=== PATIENT | male | born 1995 | race African-American/Black ===

== ENCOUNTER 2016-10-24 12:43 | Emergency (ER) | payer BC ==
[2016-10-24 13:09] VITALS: BP 125/74; PULSE 79; TEMP 98.3; BMI 24.9
--- NOTE | 2016-10-24 13:39 | PDOC ---
History of Present Illness - General Chief Complaint: Eye Problem Stated Complaint: PINK EYE/ RT EYE PAIN Time Seen by Provider: 10/24/16 13:18 History Source: Patient Exam Limitations: No Limitations - History of Present Illness Initial Comments: 10/24/16 13:34 CHIEF COMPLAINT: Pain, redness, drainage to right eye HISTORY OF PRESENT ILLNESS: Patient is a 21-year-old male, no significant medical history currently no medication presents with pruritus, pain and redness to right eye. Drainage this a.m. Denies any trauma. REVIEW OF SYSTEMS: GENERAL/CONSTITUTIONAL: No fever or chills. No weakness. No weight change. HEAD, EYES, EARS, NOSE AND THROAT: No change in vision. Drainage and pruritus to right eye. No ear pain or discharge. No sore throat. RESPIRATORY: No cough, wheezing, or hemoptysis. SKIN : No rash or easy bruising. NEUROLOGIC: No headache, vertigo, loss of consciousness, or loss of sensation. HEMATOLOGIC/LYMPHATIC: No lymphadenopathy ALLERGIC/IMMUNOLOGIC: No hives or skin allergy. No latex allergy. PHYSICAL EXAM: GENERAL: The patient is awake, alert, and fully oriented, in no acute distress. HEAD: Normal with no signs of trauma. EYES: Pupils equal, round and reactive to light, extraocular movements intact, sclera anicteric, conjunctiva injected, extending to limbus after fluorescein staining, no corneal abrasion noted. ENT: Ears normal, nares patent, oropharynx clear without exudates. Moist mucous membranes. NECK: Normal range of motion, supple without lymphadenopathy, JVD, or masses. LUNGS: Breath sounds equal, clear to auscultation bilaterally. No wheezes, and no crackles. NEUROLOGICAL: Cranial nerves II through XII grossly intact. Normal speech, normal gait. SKIN: No erythema no facial edema. Warm, Dry, normal turgor, no rashes or lesions noted. Past History - Past Medical History Allergies/Adverse Reactions: Allergies Allergy/AdvReac Type Severity Reaction Status Date / Time No Known Allergies Allergy Verified 10/24/16 13:05 Home Medications: Ambulatory Orders Aspirin [ASA -] 81 mg PO DAILY #30 tab 04/18/16 Polymyxin B Sulfate/Tmp [Polytrim Opthalmic Solution -] 2 drop OP Q4H #1 bottle 10/24/16 Other medical history: none - Immunization History Immunization Up to Date: Yes - Psycho/Social/Smoking Cessation Hx Anxiety: No Suicidal Ideation: No Smoking History: Never smoked Have you smoked in the past 12 months: No Number of Cigarettes Smoked Daily: 0 Cigars Per Day: 0 Information on smoking cessation initiated: No Hx Alcohol Use: No Drug/Substance Use Hx: No Substance Use Type: None Hx Substance Use Treatment: No *Physical Exam - Vital Signs Last Vital Signs Temp Pulse Resp BP Pulse Ox 98.3 F 79 18 125/74 100 10/24/16 13:06 10/24/16 13:06 10/24/16 13:06 10/24/16 13:06 10/24/16 13:06 Medical Decision Making - Medical Decision Making 10/24/16 13:37 A/P: Patient with conjunctivitis to right eye. We'll DC patient home on Polytrim , follow-up with ophthalmology as needed. Instructions for care given to patient. He verbalized understanding. *DC/Admit/Observation/Transfer Diagnosis at time of Disposition: Conjunctivitis Qualifiers: Conjunctivitis type: acute Acute conjunctivitis type: bacterial Laterality: right Qualified Code(s): H10.31 - Unspecified acute conjunctivitis, right eye - Discharge Dispostion Disposition: HOME Condition at time of disposition: Good Admit: No - Prescriptions Prescriptions: Polymyxin B Sulfate/Tmp [Polytrim Opthalmic Solution -] 2 drop OP Q4H #1 bottle - Patient Instructions Printed Discharge Instructions: Conjunctivitis Additional Instructions: * Refrain from touching or scratching eye * Please wash hands frequently * Please followup with his primary care doctor in 2 days if symptoms persist * Medication as prescribed * Warm compresses to eye * If increased redness, swelling, pain to the eye please follow up with primary care doctor immediately or return to emergency room - Post Discharge Activity Work/School Note: Back to Work
== END 2016-10-24 13:50 | disposition home or self-care (01) ==
LOC: JERFT 12:43
DX: H10.31 Unspecified acute conjunctivitis, right eye (principal)
CPT/HCPCS: 99281-25

== ENCOUNTER 2018-10-27 23:35 | Emergency (ER) | payer BC ==
[2018-10-27 23:43] VITALS: BP 146/92; PULSE 105; TEMP 99.2; BMI 34.4
[2018-10-28] MEDS ORDERED: IBUPROFEN 100 MG/5 ML UNIT DOSE CUPS PO ONE (00:30)
[2018-10-28] MEDS ORDERED: DEXAMETHASONE LIQUID 0.5 MG/5 ML 240 ML BULK BOTTLE PO ONE (00:30)
[2018-10-28] MEDS ORDERED: IBUPROFEN 600 MG TABLET (FP) PO ONE (00:37)
[2018-10-28] MEDS ORDERED: DEXAMETHASONE SOD PHOSPHATE 10 MG/1 ML VIAL ONE (00:37)
--- NOTE | 2018-10-28 00:53 | PDOC ---
History of Present Illness - General Chief Complaint: Sore Throat Stated Complaint: THROAT PAIN/FEVER Time Seen by Provider: 10/28/18 00:08 History Source: Patient Exam Limitations: No Limitations - History of Present Illness Initial Comments: 10/28/18 00:46 Patient is a 23 year old male with no pmhx c/o fever, sore thorat, cough and stuffy nose x 3 days. States the highest temp today was 100.2. Took [place] 6pm and benadryl at midday. States currently the sore throat is better pain is 8/10, worse with swallowing and coughing. H/o strep thorat in the past. States that last week had right periorbital pain, and popping in the right ear 2 days ago with difficulty hearing from the right ear. PMHX: seasonal allergies PSOCHX: occ etoh, neg cig, neg drugs ALL: NKDA GENERAL/CONSTITUTIONAL: No fever or chills. No weakness. No weight change. HEAD, EYES, EARS, NOSE AND THROAT: No change in vision. No ear pain or discharge. No sore throat. CARDIOVASCULAR: No chest pain or shortness of breath. RESPIRATORY: No cough, wheezing, or hemoptysis. GASTROINTESTINAL: No nausea, vomiting, diarrhea or constipation. No rectal bleeding. GENITOURINARY: No dysuria, frequency, or change in urination. MUSCULOSKELETAL: No joint or muscle swelling or pain. No neck or back pain. SKIN AND BREASTS: No rash or easy bruising. NEUROLOGIC: No headache, vertigo, loss of consciousness, or loss of sensation. PSYCHIATRIC: No depression or anxiety. ENDOCRINE: No increased thirst. No abnormal weight change. HEMATOLOGIC/LYMPHATIC: No anemia, easy bleeding, or history of blood clots. ALLERGIC/IMMUNOLOGIC: No hives or skin allergy. No latex allergy. GENERAL: The patient is awake, alert, and fully oriented, in no acute distress. HEAD: Normal with no signs of trauma. EYES: Pupils equal, round and reactive to light, extraocular movements intact, sclera anicteric, conjunctiva clear. ENT: Ears normal, nares patent, oropharynx clear without exudates. Moist mucous membranes. NECK: Normal range of motion, supple without lymphadenopathy, JVD, or masses. LUNGS: Breath sounds equal, clear to auscultation bilaterally. No wheezes, and no crackles. HEART: Regular rate and rhythm, normal S1 and S2 without murmur, rub. ABDOMEN: Soft, nontender, normoactive bowel sounds. No guarding, no rebound. No masses. EXTREMITIES: Normal range of motion, no edema. No clubbing or cyanosis. No cords, erythema, or tenderness. NEUROLOGICAL: Cranial nerves II through XII grossly intact. Normal speech, normal gait. PSYCH: Normal mood, normal affect. SKIN: Warm, Dry, normal turgor, no rashes or lesions noted. Past History - Past Medical History Allergies/Adverse Reactions: Allergies Allergy/AdvReac Type Severity Reaction Status Date / Time No Known Allergies Allergy Verified 10/24/16 13:05 Home Medications: Ambulatory Orders Aspirin [ASA -] 81 mg PO DAILY #30 tab 04/18/16 Polymyxin B Sulfate/Tmp [Polytrim Opthalmic Solution -] 2 drop OP Q4H #1 bottle 10/24/16 Amoxicillin Suspension - 500 mg PO TID #210 ml 10/28/18 COPD: No - Immunization History Immunization Up to Date: Yes - Suicide/Smoking/Psychosocial Hx Smoking History: Never smoked Have you smoked in the past 12 months: No Number of Cigarettes Smoked Daily: 0 Cigars Per Day: 0 Hx Alcohol Use: No Drug/Substance Use Hx: No Substance Use Type: None Hx Substance Use Treatment: No *Physical Exam - Vital Signs Last Vital Signs Temp Pulse Resp BP Pulse Ox 99.2 F 105 H 18 146/92 97 10/27/18 23:41 10/27/18 23:41 10/27/18 23:41 10/27/18 23:41 10/27/18 23:41 ED Treatment Course - RADIOLOGY Radiology Studies Ordered: Category Date Time Status CHEST PA & LAT [RAD] Stat Radiology 10/28/18 00:25 Ordered - Medications Given in the ED: ED Medications Discontinued Medications Generic Name Dose Route Start Last Admin Trade Name Freq PRN Reason Stop Dose Admin Dexamethasone 10 mg 10/28/18 00:30 10/28/18 00:43 Decadron Liquid - PO 10/28/18 00:31 10 mg ONCE ONE Administration Ibuprofen 600 mg 10/28/18 00:30 10/28/18 00:43 Motrin Oral Suspension - PO 10/28/18 00:31 600 mg ONCE ONE Administration Medical Decision Making - Medical Decision Making 10/28/18 00:46 Patient is a 23 year old male with no pmhx c/o fever, sore thorat, cough and stuffy nose x 3 days. States the highest temp today was 100.2. Took [place] 6pm and benadryl at midday. States currently the sore throat is better pain is 8/10, worse with swallowing and coughing. H/o strep thorat in the past. States that last week had right periorbital pain, and popping in the right ear 2 days ago with difficulty hearing from the right ear. DDx: Sinusitis, URI, strep throat, will r/o pneumonia due to cough and fever cxr, rapid strep decadron, motrin 10/28/18 01:16 Rapid strep positive. Patient given amoxicillin 500 mg by mouth. I discussed the physical exam findings, ancillary test results and final diagnoses with the patient. I answered all of the patient's questions. The patient was satisfied with the care received and felt comfortable with the discharge plan and treatment plan. The Patient agrees to follow up with the primary care physician within 24-72 hours. *DC/Admit/Observation/Transfer Diagnosis at time of Disposition: Strep pharyngitis Sinusitis Qualifiers: Sinusitis location: unspecified location Chronicity: unspecified Qualified Code (s): J32.9 - Chronic sinusitis, unspecified - Discharge Dispostion Disposition: HOME Condition at time of disposition: Stable - Referrals Referrals: Tanvir Prakash MD [Staff Physician] - - Patient Instructions Printed Discharge Instructions: DI for Strep Throat, DI for Sinusitis Additional Instructions: Your Discharge Instructions: You must call primary care physician within 24 hours to arrange follow-up. Return to the Emergency Department with any new, persistent or worsening symptoms, for fever, chills, SOB, dizziness or any other concerning changes that may occur. - Post Discharge Activity
[2018-10-28] MEDS ORDERED: AMOXICILLIN ORAL SUSPENSION - 250 MG/5 ML PO ONE (01:16)
[2018-10-28] MEDS ORDERED: AMOXICILLIN 500 MG CAPSULE (FP) ONE (01:26)
--- NOTE | 2018-10-28 01:56 | PDOC ---
*Physical Exam - Vital Signs Last Vital Signs Temp Pulse Resp BP Pulse Ox 99.2 F 105 H 18 146/92 97 10/27/18 23:41 10/27/18 23:41 10/27/18 23:41 10/27/18 23:41 10/27/18 23:41 ED Treatment Course - RADIOLOGY Radiology Studies Ordered: Category Date Time Status CHEST PA & LAT [RAD] Stat Radiology 10/28/18 00:25 Taken - Medications Given in the ED: ED Medications Discontinued Medications Generic Name Dose Route Start Last Admin Trade Name [place] PRN Reason Stop Dose Admin Amoxicillin 500 mg 10/28/18 01:16 10/28/18 01:28 Amoxicillin Suspension - PO 10/28/18 01:17 500 mg ONCE ONE Administration Dexamethasone 10 mg 10/28/18 00:30 10/28/18 00:43 Decadron Liquid - PO 10/28/18 00:31 10 mg ONCE ONE Administration Ibuprofen 600 mg 10/28/18 00:30 10/28/18 00:43 Motrin Oral Suspension - PO 10/28/18 00:31 600 mg ONCE ONE Administration *DC/Admit/Observation/Transfer Diagnosis at time of Disposition: Strep pharyngitis Sinusitis Qualifiers: Sinusitis location: unspecified location Chronicity: unspecified Qualified Code (s): J32.9 - Chronic sinusitis, unspecified - Discharge Dispostion Disposition: HOME Condition at time of disposition: Stable - Prescriptions Prescriptions: Amoxicillin Suspension - 500 mg PO TID #210 ml - Referrals Referrals: Tanvir Prakash MD [Staff Physician] - - Patient Instructions Printed Discharge Instructions: DI for Sinusitis, DI for Strep Throat Additional Instructions: Your Discharge Instructions: You must call primary care physician within 24 hours to arrange follow-up. Return to the Emergency Department with any new, persistent or worsening symptoms, for fever, chills, SOB, dizziness or any other concerning changes that may occur. - Post Discharge Activity Forms/Work/School Notes: Back to Work
== END 2018-10-28 02:01 | disposition home or self-care (01) ==
LOC: JER 23:35
DX: J02.0 Streptococcal pharyngitis (principal); B95.0 Streptococcus, group A, as the cause of diseases classified elsewhere
CPT/HCPCS: 71046-TC-FY; 87880; 99281-25